=== PATIENT | female | born 1970 | race Caucasian/White ===

== ENCOUNTER 2021-06-14 02:45 | Emergency (ER) | payer MEDICAID ==
[~2021-06-14] VITALS: Ht 162.6 cm; Wt 75.0 kg
[2021-06-14] MEDS ORDERED: KETOROLAC 30MG/ML VIAL IM ONE (03:15)
[2021-06-14 05:04] LABS: CLARITY URINE TURBID (CLEAR); COLOR URINE DARK YELLOW (YELLOW); KETONES URINE NEGATIVE (NEGATIVE); LEUKOCYTE ESTERASE URINE 3+ (NEGATIVE); NITRITE URINE NEGATIVE (NEGATIVE); OCCULT BLOOD URINE 2+ (NEGATIVE); PH URINE 8.5 (4.5-8.0); PROTEIN URINE 2+ (NEGATIVE); SPECIFIC GRAVITY URINE 1.018 (1.005-1.030)
[2021-06-14] MEDS ORDERED: CEFU500T41 MT (05:20)
[2021-06-14] MEDS ORDERED: IBUP-2029 MT (05:20)
[2021-06-14 05:39] VITALS: BP 149/90
== END 2021-06-14 05:43 | disposition home or self-care (01) ==
LOC: ER 03:06
DX: N30.00 Acute cystitis without hematuria (principal); I10 Essential (primary) hypertension; Z88.0 Allergy status to penicillin; Z88.5 Allergy status to narcotic agent; Z85.3 Personal history of malignant neoplasm of breast
CPT/HCPCS: 81003; 87086; 96372; 99283; J1885